=== PATIENT | female | born 1980 | race Caucasian/White ===

== ENCOUNTER 2017-10-10 11:42 | Emergency (ER) | payer BC ==
[2017-10-10] MEDS ORDERED: fentaNYL 100 MCG/2 ML INJ IVP ONE (11:57)
[2017-10-10] MEDS ORDERED: NS 1,000 ML IV ONE (11:57)
--- NOTE | 2017-10-10 12:01 | EDPHY ---
H & P Stated Complaint: R flank pain x 3 hours; nausea Time Seen by Provider: 10/10/17 11:45 HPI/ROS: Chief Complaint: Flank pain HPI: Year old woman presenting with right flank pain which began about 3 hr ago. She has a history of kidney stones and states this feels like her last 1 which was about 10 years ago. She has had some urinary urgency but no frequency. No fevers or chills. Some nausea no vomiting. She took some Midol this morning without any relief. She did have a little bit of which she thought was vaginal spotting. She has an IUD and does not know her last menstrual.. Does not believe she is . No numbness or weakness. No abdominal pain. ROS: 10 point Review of Systems is negative except as noted in the HPI. PMH: Kidney stones Social History: Occasional smoking, occasional alcohol, occasional marijuana Family History: non-contributory Physical Exam: Gen: Awake, Alert, No Distress HEENT: Nose: no rhinorrhea Eyes: PERRLA, EOMI Mouth: Moist mucosa Neck: Supple, no JVD Chest: nontender, lungs clear to auscultation Heart: S1, S2 normal, no murmur Abd: Soft, non-tender, no guarding Back: no CVA tenderness, no midline tenderness Ext: no edema, non-tender Skin: no rash Neuro: CN II-XII intact, Sensation grossly intact, Strength 5/5 in bilateral upper and lower extremities - Personal History LMP (Females 10-55): IUD In Place Current Tetanus/Diphtheria Vaccine: Yes Tetanus Vaccine Date: WITHIN 10 YRS - Medical/Surgical History Other PMH: kidney stones - Social History Smoking Status: Current some day smoker Constitutional: Initial Vital Signs Temperature (C) 36.5 C 10/10/17 11:44 Heart Rate 68 10/10/17 11:44 Respiratory Rate 20 10/10/17 11:44 Blood Pressure 169/109 H 10/10/17 11:44 O2 Sat (%) 97 10/10/17 11:44 O2 Delivery Mode Room Air Allergies/Adverse Reactions: ampicillin Allergy (Verified 10/10/17 11:49) Swelling/neck,face,throat Home Medications: Medication Instructions Recorded Hydrocodone/Acetaminophen 1 - 2 each PO Q4-6PRN PRN #10 10/10/17 [Hydrocodon-Acetaminophen 5-325] tablet Tamsulosin HCl 0.4 mg PO DAILY #10 cap 10/10/17 Medical Decision Making - Diagnostics Imaging Results: Imaging Impressions Abdomen/Pelvis Ultrasound 10/10/17 11:57 Impression: 1. Mild right-sided hydronephrosis. The point of obstruction cannot be delineated. 2. Nonobstructive calculus lower pole right kidney of incidental note. 3. No evidence of hydronephrosis on the left. 4. Ureteral jet is not visualized on the right also suspicious for right-sided obstructive process. If indicated, consider CT imaging to confirm location and size of presumed obstructive calculus on the right. Findings discussed with Adán Rodrigues MD at 12:38 hour, 10/10/2017. Imaging: Discussed imaging studies w/ power truck driver Radiologist ED Course/Re-evaluation: Ultrasound consistent with renal calculus. I have discussed the findings with the patient. She understands that we cannot identify the [place] locations stone without CT scanning and she is deferring at this time. I think that this is appropriate. Will refer to Urology for outpatient follow-up. Will start her on tamsulosin, she will continue with ibuprofen and will take [place] as needed. Urinalysis does not show any evidence of urinary tract infection at this time. - Data Points Laboratory Results: 10/10/17 12:18 POC Sodium 138 mEq/L mEq/L (135-145) POC Potassium 3.3 mEq/L mEq/L (3.3-5.0) POC Chloride 102.0 mEq/L mEq/L (97-110) POC Total CO2 22 mEq/L mEq/L (22-31) POC BUN 16 mg/dL mg/dL (7-23) POC Creatinine 1.2 mg/dL H mg/dL (0.6-1.0) POC Glucose 105 mg/dL H mg/dL (70-100) POC Calcium 9.4 mg/dL mg/dL (8.5-10.4) Medications Given: Discontinued Medications Fentanyl (Sublimaze) 50 mcg IVP EDNOW ONE Stop: 10/10/17 11:58 Last Admin: 10/10/17 12:10 Dose: 50 mcg Sodium Chloride (Ns) 1,000 mls @ 0 mls/hr IV ONCE ONE; Wide Open PRN Reason: Protocol Stop: 10/10/17 11:58 Last Admin: 10/10/17 12:09 Dose: 1,000 mls Ketorolac Tromethamine (Toradol) 15 mg IVP EDNOW ONE Stop: 10/10/17 12:47 Last Admin: 10/10/17 12:52 Dose: 15 mg Point of Care Test Results: Chemistry 10/10/17 12:18 POC Sodium 138 mEq/L mEq/L (135-145) POC Potassium 3.3 mEq/L mEq/L (3.3-5.0) POC Chloride 102.0 mEq/L mEq/L (97-110) POC Total CO2 22 mEq/L mEq/L (22-31) POC BUN 16 mg/dL mg/dL (7-23) POC Creatinine 1.2 mg/dL H mg/dL (0.6-1.0) POC Glucose 105 mg/dL H mg/dL (70-100) POC Calcium 9.4 mg/dL mg/dL (8.5-10.4) Urine Collection Date 10/10/17 Collection Time 12:15 HCG Results Negative Urine Dip Collection Date 10/10/17 Collection Time 12:15 Specific [place] (1.002-1.030) 1.010 PH (5.0-7.5) 5.5 Leukocytes (Negative) Negative Nitrites (Negative) Negative Protein (Negative) Negative Glucose (Negative) Negative Ketones (Negative) Negative Urobilnogen (0.2-1.0 EU) 0.2 Bilirubin (Negative) Negative Blood (Negative) 2+ Departure - Departure Disposition: Home, Routine, Self-Care Clinical Impression: Kidney stone Condition: Good Instructions: Kidney Stones (ED) Additional Instructions: You may take ibuprofen, 600 mg 3 times a day for pain. For breakthrough pain you may take hydrocodone with acetaminophen, 1-2 tablets every 4-6 hours. Take tamsulosin every day to help facilitate passage of the kidney stone. Strain your urine and take the stone when you collect it to your doctor for follow-up. Follow up with Urology in 3-4 days for further evaluation. Return to the emergency department for increasing pain, fevers or chills, uncontrolled vomiting, or any other concerns. Referrals: Richy John MD [Medical Doctor] - As per Instructions Prescriptions: Hydrocodone/Acetaminophen [Hydrocodon-Acetaminophen 5-325] 1 - 2 each PO Q4- 6PRN PRN #10 tablet PRN Reason: Pain, Severe Tamsulosin HCl 0.4 mg PO DAILY #10 cap
[2017-10-10] MEDS ORDERED: KETOROLAC 15 MG/1 ML SDV IVP ONE (12:46)
[2017-10-10] MEDS ORDERED: TAMSULOSIN HCL 0.4 MG CAP PO ONE (13:37)
[2017-10-10 14:00] VITALS: BP 140/91
== END 2017-10-10 14:11 | disposition home or self-care (01) ==
LOC: CED 11:42
DX: N20.0 Calculus of kidney (principal); F17.200 Nicotine dependence, unspecified, uncomplicated; E86.9 Volume depletion, unspecified
CPT/HCPCS: 76770-PO; 80048-PO; 96374; J1885; J3010